=== PATIENT | female | born 1940 | race Caucasian/White ===

== ENCOUNTER 2017-05-04 10:44 | Emergency (ER) | payer MEDICARE ==
[~2017-05-04] VITALS: Ht 149.9 cm; Wt 50.0 kg
[2017-05-04 12:09] LABS: BASOPHILS % 0.5 % (0.0-2.0); EOSINOPHILS % 2.2 % (0.0-5.0); HEMATOCRIT. 29.5 % (36.0-48.0); HEMOGLOBIN. 9.8 g/dL (12.0-16.0); LYMPHOCYTES % 22.4 % (20.0-50.0); MEAN CORPUSCULAR HEMOGLOBIN 27.8 pg (28.0-32.0); MEAN CORPUSCULAR VOLUME 83.8 fL (81.0-99.0); MONOCYTES % 5.8 % (2.0-8.0); NEUTROPHILS % 69.1 % (40.0-76.0); PLATELET 163 x1000/uL (130-400); RED BLOOD CELL COUNT 3.52 mill/uL (4.2-5.4); RED CELL DISTRIBUTION WIDTH 14.3 % (11.6-14.6)
[2017-05-04 12:17] LABS: PROTHROMBIN TIME 10.6 sec (9.4-11.6)
[2017-05-04 12:24] LABS: CLARITY URINE CLEAR (CLEAR); COLOR URINE YELLOW (YELLOW); GLUCOSE URINE NEGATIVE (NEGATIVE); KETONES URINE NEGATIVE (NEGATIVE); LEUKOCYTE ESTERASE URINE 1+ (NEGATIVE); NITRITE URINE NEGATIVE (NEGATIVE); OCCULT BLOOD URINE TRACE (NEGATIVE); PH URINE 5.5 (4.5-8.0); PROTEIN URINE 3+ (NEGATIVE); SPECIFIC GRAVITY URINE 1.012 (1.005-1.030); UROBILINOGEN URINE 0.2 E.U./dL (0.2-1.0)
[2017-05-04] MEDS ORDERED: SODIUM CHLORIDE 0.9% 1,000 ML IV ONE (12:30)
[2017-05-04 13:40] VITALS: BP 160/73
== END 2017-05-04 15:05 | disposition home or self-care (01) ==
LOC: ER 12:06
DX: E87.5 Hyperkalemia (principal); I12.9 Hypertensive chronic kidney disease with stage 1 through stage 4 chronic kidney disease, or unspecified chronic kidney disease; N18.9 Chronic kidney disease, unspecified; E11.22 Type 2 diabetes mellitus with diabetic chronic kidney disease
CPT/HCPCS: 36415; 80048; 81001; 85025; 85610; 96360; 96361; 99285; J7030

== ENCOUNTER 2020-08-21 17:18 | Inpatient (IN) | payer MEDICARE, MEDICAID ==
[~2020-08-21] VITALS: Ht 152.4 cm; Wt 45.9 kg
[2020-08-21 20:06] LABS: BASOPHILS % 0.6 % (0.0-2.0); EOSINOPHILS % 0.2 % (0.0-5.0); HEMATOCRIT. 33.2 % (36.0-48.0); HEMOGLOBIN. 10.9 g/dL (12.0-16.0); LYMPHOCYTES % 14.2 % (20.0-50.0); MEAN CORPUSCULAR HEMOGLOBIN 26.7 pg (28.0-32.0); MEAN CORPUSCULAR VOLUME 81.5 fL (81.0-99.0); MEAN PLATELET VOLUME 8.1 fl (7.4-10.4); MONOCYTES % 9.5 % (2.0-8.0); NEUTROPHILS % 75.5 % (40.0-76.0); PLATELET 155 x1000/uL (130-400); RED BLOOD CELL COUNT 4.08 mill/uL (4.2-5.4); RED CELL DISTRIBUTION WIDTH 15.5 % (11.6-14.6)
[2020-08-21 20:18] LABS: CHLORIDE 108 mEq/L (98-107)
[2020-08-21] MEDS ORDERED: FUROSEMIDE 40MG/4ML VIAL IVP ONE (21:00)
[2020-08-22] VITALS (9 sets, daily range): BP systolic 150–183; BP diastolic 50–79
[2020-08-22] MEDS ORDERED: ACETAMINOPHEN 325MG TABLET PO PRN (09:45)
[2020-08-22] MEDS ORDERED: ONDANSETRON HCL 4MG/2ML INJ IV PRN (09:45)
[2020-08-22] MEDS ORDERED: CLONIDINE 0.1MG TABLET PO PRN (10:45)
[2020-08-22] MEDS: FUROSEMIDE 40MG/4ML VIAL IVP SCH (10:52)
[2020-08-22] MEDS: ENOXAPARIN 30MG/0.3ML SYR SUBCUT SCH (10:53)
[2020-08-22 13:19] LABS: CHLORIDE 109 mEq/L (98-107)
[2020-08-22 13:31] LABS: LDL CHOLESTEROL 55 mg/dL (5-100)
[2020-08-22 13:32] LABS: HDL CHOLESTEROL 92 mg/dL (40-59)
[2020-08-22] MEDS: DILTIAZEM HCL 30MG TABLET PO SCH ×2 (15:18→19:12)
[2020-08-22] MEDS: METHIMAZOLE 10MG TABLET PO SCH (19:13)
[2020-08-22 21:23] LABS: T4 FREE 1.76 ng/dL (0.76-1.46)
[2020-08-23] VITALS (11 sets, daily range): BP systolic 122–160; BP diastolic 44–61
[2020-08-23] MEDS: DILTIAZEM HCL 30MG TABLET PO SCH ×3 (06:48→11:12)
[2020-08-23 06:55] LABS: BASOPHILS % 0.5 % (0.0-2.0); EOSINOPHILS % 1.2 % (0.0-5.0); HEMATOCRIT. 28.3 % (36.0-48.0); HEMOGLOBIN. 9.5 g/dL (12.0-16.0); LYMPHOCYTES % 25.4 % (20.0-50.0); MEAN CORPUSCULAR HEMOGLOBIN 27.3 pg (28.0-32.0); MEAN CORPUSCULAR VOLUME 81.5 fL (81.0-99.0); MEAN PLATELET VOLUME 8.1 fl (7.4-10.4); NEUTROPHILS % 60.9 % (40.0-76.0); PLATELET 121 x1000/uL (130-400); RED BLOOD CELL COUNT 3.47 mill/uL (4.2-5.4); RED CELL DISTRIBUTION WIDTH 15.6 % (11.6-14.6)
[2020-08-23] MEDS: METHIMAZOLE 10MG TABLET PO SCH ×3 (09:42→17:41)
[2020-08-23] MEDS: FUROSEMIDE 40MG/4ML VIAL IVP SCH (09:43)
[2020-08-23] MEDS: ENOXAPARIN 30MG/0.3ML SYR SUBCUT SCH (09:43)
[2020-08-23] MEDS ORDERED: DILTIAZEM HCL 60MG TABLET PO SCH ×2 (12:00→18:00)
[2020-08-23] MEDS ORDERED: DILTIAZEM HCL 30MG TABLET PO NR (13:45)
[2020-08-23] MEDS ORDERED: FURO-152 MT (15:48)
[2020-08-23] MEDS ORDERED: DILT240C91 MT (15:48)
[2020-08-23] MEDS ORDERED: TAP PO (15:48)
== END 2020-08-23 18:55 | disposition home or self-care (01) | DRG 291 ==
LOC: ER 17:18 → 5EST 08-22 00:28 → ENRESERV 08-22 07:44
PROVIDERS: ADMIT Internal Medicine; ATTEND Internal Medicine
DX: I13.0 Hypertensive heart and chronic kidney disease with heart failure and stage 1 through stage 4 chronic kidney disease, or unspecified chronic kidney disease (principal); E43 Unspecified severe protein-calorie malnutrition; I50.33 Acute on chronic diastolic (congestive) heart failure; E87.1 Hypo-osmolality and hyponatremia; Z68.1 Body mass index [BMI] 19.9 or less, adult; N17.9 Acute kidney failure, unspecified; E11.22 Type 2 diabetes mellitus with diabetic chronic kidney disease; D64.9 Anemia, unspecified; E87.8 Other disorders of electrolyte and fluid balance, not elsewhere classified; E05.90 Thyrotoxicosis, unspecified without thyrotoxic crisis or storm; E03.9 Hypothyroidism, unspecified; N18.30 Chronic kidney disease, stage 3 unspecified; Z79.899 Other long term (current) drug therapy; I27.20 Pulmonary hypertension, unspecified
CPT/HCPCS: 36415; 71045; 80048; 80053; 80061; 82962; 83880; 84439; 84443; 84481; 84484; 85025; 93005; 93306; 99285; J1650; J1940

== ENCOUNTER 2021-02-18 14:25 | Inpatient (IN) | payer MEDICAID, MEDICARE, OTHER ==
[~2021-02-18] VITALS: Ht 147.3 cm; Wt 47.6 kg
[~2021-02-18 14:25] MED LIST: DILT240C91 MT; FURO-152 MT; TAP PO
[2021-02-18 16:37] LABS: BASOPHILS % 0.9 % (0.0-2.0); EOSINOPHILS % 2.8 % (0.0-5.0); HEMATOCRIT. 23.4 % (36.0-48.0); LYMPHOCYTES % 17.5 % (20.0-50.0); MEAN CORPUSCULAR HEMOGLOBIN 30.8 pg (28.0-32.0); MEAN CORPUSCULAR VOLUME 90.3 fL (81.0-99.0); MEAN PLATELET VOLUME 6.6 fl (7.4-10.4); MONOCYTES % 6.9 % (2.0-8.0); NEUTROPHILS % 71.9 % (40.0-76.0); PLATELET 270 x1000/uL (130-400); RED BLOOD CELL COUNT 2.59 mill/uL (4.2-5.4); RED CELL DISTRIBUTION WIDTH 14.9 % (11.6-14.6)
[2021-02-18 16:40] LABS: CHLORIDE 104 mEq/L (98-107)
[2021-02-18 19:38] LABS: HEPATITIS B SURFACE ANTIGEN NEGATIVE
[2021-02-18 20:08] LABS: HEPATITIS A AB IGM NEGATIVE (NEGATIVE)
[2021-02-18 21:30] VITALS: BP 168/46
[2021-02-18] MEDS ORDERED: DEXTROSE 50% WATER 50ML SYRINGE IV PRN (23:00)
[2021-02-18] MEDS ORDERED: ONDANSETRON HCL 4MG TABLET PO PRN (23:15)
[2021-02-19] VITALS (11 sets, daily range): BP systolic 134–168; BP diastolic 46–66
[2021-02-19] MEDS: CLONIDINE 0.1MG TABLET PO PRN ×2 (01:39→18:24)
[2021-02-19 07:25] LABS: BASOPHILS % 0.9 % (0.0-2.0); EOSINOPHILS % 2.9 % (0.0-5.0); HEMOGLOBIN. 7.2 g/dL (12.0-16.0); LYMPHOCYTES % 13.6 % (20.0-50.0); MEAN CORPUSCULAR HEMOGLOBIN 30.9 pg (28.0-32.0); MEAN PLATELET VOLUME 6.7 fl (7.4-10.4); NEUTROPHILS % 75.6 % (40.0-76.0); PLATELET 248 x1000/uL (130-400); RED BLOOD CELL COUNT 2.33 mill/uL (4.2-5.4); RED CELL DISTRIBUTION WIDTH 14.6 % (11.6-14.6)
[2021-02-19 07:28] LABS: PHOSPHORUS 5.5 mg/dL (2.5-4.9)
[2021-02-19] MEDS: INSULIN LISPRO 100 UNITS/ML SUBCUT SCH ×4 (07:50→22:23)
[2021-02-19] MEDS: BLOOD SUGAR DIAGNOSTIC STRIP TEST SCH ×4 (07:59→21:57)
[2021-02-19] MEDS: SEVELAMER CARBONATE 800 MG TABLET PO SCH ×3 (08:43→17:04)
[2021-02-19] MEDS: FERROUS SULFATE 300MG/5ML UDC PO SCH ×3 (08:43→17:04)
[2021-02-19] MEDS: FOLIC ACID/VITAMIN B COMP W-C TABLET PO SCH (08:43)
[2021-02-19] MEDS: CALCITRIOL 0.25MCG CAPSULE PO SCH (08:44)
[2021-02-19] MEDS ORDERED: AMLODIPINE 10MG TABLET PO SCH ×2 (09:00)
[2021-02-19] MEDS ORDERED: MANNITOL 12.5G (25%) VIAL 50ML IV SCH (14:00)
[2021-02-19] MEDS: ATORVASTATIN CALCIUM 20MG TABLET PO SCH (21:58)
[2021-02-19 22:07] LABS: HEMATOCRIT 28.9 % (36.0-48.0); HEMOGLOBIN 10.1 g/dL (12.0-16.0)
[2021-02-20] VITALS: BP 145/57
[2021-02-20 04:00] VITALS: BP 84/45
[2021-02-20] MEDS: BLOOD SUGAR DIAGNOSTIC STRIP TEST SCH ×4 (06:26→21:00)
[2021-02-20 07:04] LABS: EOSINOPHILS % 2.4 % (0.0-5.0); HEMATOCRIT. 29.7 % (36.0-48.0); HEMOGLOBIN. 10.3 g/dL (12.0-16.0); LYMPHOCYTES % 16.1 % (20.0-50.0); MEAN CORPUSCULAR HEMOGLOBIN 30.2 pg (28.0-32.0); MEAN CORPUSCULAR VOLUME 86.6 fL (81.0-99.0); MEAN PLATELET VOLUME 6.3 fl (7.4-10.4); NEUTROPHILS % 72.5 % (40.0-76.0); PLATELET 254 x1000/uL (130-400); RED BLOOD CELL COUNT 3.43 mill/uL (4.2-5.4); RED CELL DISTRIBUTION WIDTH 15.1 % (11.6-14.6)
[2021-02-20] MEDS: INSULIN LISPRO 100 UNITS/ML SUBCUT SCH ×4 (07:50→21:00)
[2021-02-20 08:00] VITALS: BP 155/53
[2021-02-20] MEDS: FOLIC ACID/VITAMIN B COMP W-C TABLET PO SCH (09:04)
[2021-02-20] MEDS: CALCITRIOL 0.25MCG CAPSULE PO SCH (09:04)
[2021-02-20] MEDS: SEVELAMER CARBONATE 800 MG TABLET PO SCH ×3 (09:04→17:59)
[2021-02-20] MEDS: DILTIAZEM HCL 120MG CAPSULE CD 24HR PO SCH (09:05)
[2021-02-20] MEDS: FERROUS SULFATE 300MG/5ML UDC PO SCH ×3 (09:05→17:59)
[2021-02-20 20:00] VITALS: BP 159/52
[2021-02-20] MEDS: ATORVASTATIN CALCIUM 20MG TABLET PO SCH (22:34)
[2021-02-21] VITALS: BP 150/45
[2021-02-21 04:00] VITALS: BP 147/46
[2021-02-21 06:28] LABS: BASOPHILS % 0.9 % (0.0-2.0); EOSINOPHILS % 1.9 % (0.0-5.0); HEMATOCRIT. 29.4 % (36.0-48.0); HEMOGLOBIN. 10.1 g/dL (12.0-16.0); LYMPHOCYTES % 15.7 % (20.0-50.0); MEAN CORPUSCULAR HEMOGLOBIN 30.1 pg (28.0-32.0); MEAN CORPUSCULAR VOLUME 87.5 fL (81.0-99.0); MEAN PLATELET VOLUME 6.8 fl (7.4-10.4); MONOCYTES % 8.3 % (2.0-8.0); NEUTROPHILS % 73.2 % (40.0-76.0); PLATELET 241 x1000/uL (130-400); RED BLOOD CELL COUNT 3.36 mill/uL (4.2-5.4); RED CELL DISTRIBUTION WIDTH 15.1 % (11.6-14.6)
[2021-02-21] MEDS: BLOOD SUGAR DIAGNOSTIC STRIP TEST SCH ×4 (06:43→20:44)
[2021-02-21] MEDS: INSULIN LISPRO 100 UNITS/ML SUBCUT SCH ×4 (07:50→20:44)
[2021-02-21 08:00] VITALS: BP 157/45
[2021-02-21] MEDS: FOLIC ACID/VITAMIN B COMP W-C TABLET PO SCH (08:48)
[2021-02-21] MEDS: SEVELAMER CARBONATE 800 MG TABLET PO SCH ×3 (08:48→17:33)
[2021-02-21] MEDS: FERROUS SULFATE 300MG/5ML UDC PO SCH ×3 (08:48→17:33)
[2021-02-21] MEDS: CALCITRIOL 0.25MCG CAPSULE PO SCH (08:49)
[2021-02-21] MEDS: DILTIAZEM HCL 120MG CAPSULE CD 24HR PO SCH (08:50)
[2021-02-21 12:04] VITALS: BP 159/55
[2021-02-21 16:00] VITALS: BP 158/51
[2021-02-21 20:00] VITALS: BP 146/60
[2021-02-21] MEDS: ATORVASTATIN CALCIUM 20MG TABLET PO SCH (20:48)
[2021-02-22] VITALS: BP 148/55
[2021-02-22 04:00] VITALS: BP 165/96
[2021-02-22] MEDS: BLOOD SUGAR DIAGNOSTIC STRIP TEST SCH ×4 (06:47→21:03)
[2021-02-22] MEDS: INSULIN LISPRO 100 UNITS/ML SUBCUT SCH ×4 (07:50→21:00)
[2021-02-22 08:00] VITALS: BP 170/55
[2021-02-22] MEDS: SEVELAMER CARBONATE 800 MG TABLET PO SCH ×3 (08:44→17:58)
[2021-02-22] MEDS: DILTIAZEM HCL 120MG CAPSULE CD 24HR PO SCH ×2 (08:44→21:02)
[2021-02-22] MEDS: CALCITRIOL 0.25MCG CAPSULE PO SCH (08:44)
[2021-02-22] MEDS: FOLIC ACID/VITAMIN B COMP W-C TABLET PO SCH (08:44)
[2021-02-22] MEDS: FERROUS SULFATE 300MG/5ML UDC PO SCH ×3 (08:45→17:58)
[2021-02-22] MEDS: CLONIDINE 0.1MG TABLET PO PRN (08:49)
[2021-02-22 12:00] VITALS: BP 130/44
[2021-02-22 16:00] VITALS: BP 128/48
[2021-02-22 20:00] VITALS: BP 122/41
[2021-02-22] MEDS: HYDRALAZINE HCL 50MG TABLET PO SCH (21:02)
[2021-02-22] MEDS: ATORVASTATIN CALCIUM 20MG TABLET PO SCH (21:03)
[2021-02-23] VITALS: BP 116/33
[2021-02-23 04:00] VITALS: BP 124/38
[2021-02-23 06:13] LABS: BASOPHILS % 0.6 % (0.0-2.0); EOSINOPHILS % 1.8 % (0.0-5.0); HEMOGLOBIN. 9.2 g/dL (12.0-16.0); LYMPHOCYTES % 14.3 % (20.0-50.0); MEAN CORPUSCULAR HEMOGLOBIN 29.6 pg (28.0-32.0); MEAN CORPUSCULAR VOLUME 89.7 fL (81.0-99.0); MEAN PLATELET VOLUME 7.1 fl (7.4-10.4); MONOCYTES % 8.8 % (2.0-8.0); NEUTROPHILS % 74.5 % (40.0-76.0); PLATELET 181 x1000/uL (130-400); RED BLOOD CELL COUNT 3.12 mill/uL (4.2-5.4); RED CELL DISTRIBUTION WIDTH 14.5 % (11.6-14.6)
[2021-02-23] MEDS: BLOOD SUGAR DIAGNOSTIC STRIP TEST SCH ×2 (06:46→12:20)
[2021-02-23] MEDS: INSULIN LISPRO 100 UNITS/ML SUBCUT SCH ×2 (07:50→13:48)
[2021-02-23 08:00] VITALS: BP 137/42
[2021-02-23] MEDS: CALCITRIOL 0.25MCG CAPSULE PO SCH (08:46)
[2021-02-23] MEDS: FOLIC ACID/VITAMIN B COMP W-C TABLET PO SCH (08:46)
[2021-02-23] MEDS: FERROUS SULFATE 300MG/5ML UDC PO SCH ×3 (08:46→16:37)
[2021-02-23] MEDS: SEVELAMER CARBONATE 800 MG TABLET PO SCH ×3 (08:46→16:37)
[2021-02-23] MEDS: HYDRALAZINE HCL 50MG TABLET PO SCH (08:47)
[2021-02-23] MEDS: DILTIAZEM HCL 120MG CAPSULE CD 24HR PO SCH (08:47)
[2021-02-23] MEDS ORDERED: HYDR-4135 PO (11:28)
[2021-02-23] MEDS ORDERED: DILT120C88 PO (11:28)
[2021-02-23 12:00] VITALS: BP 118/38
[2021-02-23 14:09] VITALS: BP 133/50
[2021-02-23 16:00] VITALS: BP 128/40
== END 2021-02-23 17:36 | disposition home or self-care (01) | DRG 640 ==
LOC: ER 14:25 → 6EST 17:32 → ENRESERV 19:44 → 6EST 21:25
PROVIDERS: ADMIT Internal Medicine; ATTEND Internal Medicine
PROC: 30233N1 Transfusion of Nonautologous Red Blood Cells into Peripheral Vein, Percutaneous Approach (ICD-10-PCS; principal; 2021-02-19)
PROC: 5A1D70Z Performance of Urinary Filtration, Intermittent, Less than 6 Hours Per Day (ICD-10-PCS; 2021-02-19)
PROC: 5A1D70Z Performance of Urinary Filtration, Intermittent, Less than 6 Hours Per Day (ICD-10-PCS; 2021-02-21)
DX: E87.5 Hyperkalemia (principal); N18.6 End stage renal disease; I13.2 Hypertensive heart and chronic kidney disease with heart failure and with stage 5 chronic kidney disease, or end stage renal disease; I31.3 Pericardial effusion (noninflammatory); E44.0 Moderate protein-calorie malnutrition; E87.1 Hypo-osmolality and hyponatremia; E87.2 Acidosis; D63.1 Anemia in chronic kidney disease; E11.22 Type 2 diabetes mellitus with diabetic chronic kidney disease; F03.90 Unspecified dementia, unspecified severity, without behavioral disturbance, psychotic disturbance, mood disturbance, and anxiety; Z20.822 Contact with and (suspected) exposure to COVID-19; I27.20 Pulmonary hypertension, unspecified; I50.9 Heart failure, unspecified; E11.21 Type 2 diabetes mellitus with diabetic nephropathy; I36.1 Nonrheumatic tricuspid (valve) insufficiency; I35.1 Nonrheumatic aortic (valve) insufficiency; E04.9 Nontoxic goiter, unspecified; Z99.2 Dependence on renal dialysis; Z79.84 Long term (current) use of oral hypoglycemic drugs; Z79.899 Other long term (current) drug therapy; Z68.21 Body mass index [BMI] 21.0-21.9, adult
CPT/HCPCS: 36415; 71045; 80048; 80053; 80061; 82270; 82728; 82962; 83036; 83540; 83550; 83735; 83970; 84100; 85014; 85018; 85025; 86705; 86709; 86803; 86850; 86900; 86920; 87340; 87426; 97116; 97162; 97530; 99285; J1815; J2150; P9016; U0003; U0005

== ENCOUNTER 2021-05-05 09:34 | Inpatient (IN) | payer MEDICARE, MEDICAID ==
[~2021-05-05] VITALS: Ht 152.4 cm; Wt 41.8 kg
[~2021-05-05 09:34] MED LIST changes: +DILT120C88 PO; -DILT240C91 MT; +HYDR-4135 PO
[2021-05-05 11:00] LABS: BASOPHILS % 0.8 % (0.0-2.0); HEMATOCRIT. 35.9 % (36.0-48.0); HEMOGLOBIN. 12.1 g/dL (12.0-16.0); LYMPHOCYTES % 19.2 % (20.0-50.0); MEAN CORPUSCULAR HEMOGLOBIN 30.1 pg (28.0-32.0); MEAN CORPUSCULAR VOLUME 89.4 fL (81.0-99.0); MEAN PLATELET VOLUME 6.3 fl (7.4-10.4); MONOCYTES % 6.5 % (2.0-8.0); NEUTROPHILS % 72.5 % (40.0-76.0); PLATELET 238 x1000/uL (130-400); RED BLOOD CELL COUNT 4.02 mill/uL (4.2-5.4)
[2021-05-05 11:04] LABS: CHLORIDE 99 mEq/L (98-107)
[2021-05-05 11:10] LABS: PROTHROMBIN TIME 10.7 sec (9.6-11.0)
[2021-05-05] MEDS ORDERED: AZITHROMYCIN 500 MG in DEXT 5% WATER 250 ML IV ONE (13:15)
[2021-05-05] MEDS ORDERED: CEFTRIAXONE 1 G PREMIX 50 ML IV ONE (13:15)
[2021-05-05] MEDS ORDERED: PIPERACILLIN/TAZ 3.375G PREMIX 50 ML IV NR (20:30)
[2021-05-05] MEDS ORDERED: VANCOMYCIN 1 G PREMIX 200 ML IV NR (20:30)
[2021-05-06] VITALS: BP_SYST 158; BP_SYST 169; BP_DIAS 55; BP_DIAS 56
[2021-05-06] MEDS ORDERED: DEXTROSE 50% WATER 50ML SYRINGE IV PRN (01:15)
[2021-05-06] MEDS: CLONIDINE 0.2MG TABLET PO PRN ×2 (02:26→08:42)
[2021-05-06 04:00] VITALS: BP 117/54
[2021-05-06] MEDS: BLOOD SUGAR DIAGNOSTIC STRIP TEST SCH ×4 (05:43→21:43)
[2021-05-06] MEDS: INSULIN LISPRO 100 UNITS/ML SUBCUT SCH ×4 (05:44→21:54)
[2021-05-06 07:10] LABS: BASOPHILS % 0.8 % (0.0-2.0); EOSINOPHILS % 1.3 % (0.0-5.0); HEMOGLOBIN. 11.3 g/dL (12.0-16.0); LYMPHOCYTES % 10.9 % (20.0-50.0); MEAN CORPUSCULAR HEMOGLOBIN 29.9 pg (28.0-32.0); MEAN CORPUSCULAR VOLUME 89.7 fL (81.0-99.0); MEAN PLATELET VOLUME 6.6 fl (7.4-10.4); MONOCYTES % 5.8 % (2.0-8.0); NEUTROPHILS % 81.2 % (40.0-76.0); PLATELET 250 x1000/uL (130-400); RED CELL DISTRIBUTION WIDTH 17.2 % (11.6-14.6)
[2021-05-06 08:00] VITALS: BP 173/59
[2021-05-06] MEDS: METHIMAZOLE 5MG TABLET PO SCH ×2 (08:40→13:41)
[2021-05-06] MEDS: FUROSEMIDE 20MG TABLET PO SCH (08:41)
[2021-05-06] MEDS: HYDRALAZINE HCL 50MG TABLET PO SCH ×2 (08:41→21:53)
[2021-05-06] MEDS ORDERED: DILTIAZEM HCL 120MG CAPSULE CD 24HR PO SCH ×2 (09:00→21:00)
[2021-05-06] MEDS ORDERED: ENOXAPARIN 30MG/0.3ML SYR SUBCUT SCH (09:00)
[2021-05-06] MEDS ORDERED: PIPERACILLIN/TAZOBACTAM 3.375 G in DEXTROSE 5% WATER 50 ML IV SCH (09:00)
[2021-05-06] MEDS ORDERED: ENOXAPARIN 40MG/0.4ML SYR SUBCUT SCH (09:00)
[2021-05-06 12:00] VITALS: BP 126/49
[2021-05-06] MEDS ORDERED: PNEUMOCOCCAL 23-VAL P-SAC VAC 0.5 ML IM ONE (12:00)
[2021-05-06] MEDS ORDERED: METHIMAZOLE 5MG TABLET PO SCH (13:00)
[2021-05-06 14:59] LABS: T4 FREE 0.71 ng/dL (0.76-1.46)
[2021-05-06 16:00] VITALS: BP 142/49
[2021-05-06 16:57] LABS: HEPATITIS B SURFACE ANTIGEN NEGATIVE
[2021-05-06] MEDS: CEFEPIME 2,000 MG in DEXT 5% WATER 100 ML IV SCH (17:45)
[2021-05-06] MEDS: DILTIAZEM HCL 60MG TABLET PO SCH (17:46)
[2021-05-06 20:00] VITALS: BP 152/73
[2021-05-07] VITALS: BP 146/59
[2021-05-07] MEDS: DILTIAZEM HCL 60MG TABLET PO SCH ×5 (00:48→23:31)
[2021-05-07 04:00] VITALS: BP 107/44
[2021-05-07] MEDS: BLOOD SUGAR DIAGNOSTIC STRIP TEST SCH ×4 (05:51→20:54)
[2021-05-07] MEDS: INSULIN LISPRO 100 UNITS/ML SUBCUT SCH ×4 (06:22→20:54)
[2021-05-07 08:00] VITALS: BP 140/52
[2021-05-07 08:26] LABS: BASOPHILS % 0.6 % (0.0-2.0); EOSINOPHILS % 0.9 % (0.0-5.0); HEMATOCRIT. 32.1 % (36.0-48.0); HEMOGLOBIN. 10.7 g/dL (12.0-16.0); LYMPHOCYTES % 9.1 % (20.0-50.0); MEAN CORPUSCULAR VOLUME 90.4 fL (81.0-99.0); MONOCYTES % 5.5 % (2.0-8.0); NEUTROPHILS % 83.9 % (40.0-76.0); PLATELET 218 x1000/uL (130-400); RED BLOOD CELL COUNT 3.55 mill/uL (4.2-5.4); RED CELL DISTRIBUTION WIDTH 16.6 % (11.6-14.6)
[2021-05-07] MEDS: FUROSEMIDE 20MG TABLET PO SCH (08:34)
[2021-05-07] MEDS: HYDRALAZINE HCL 50MG TABLET PO SCH ×2 (08:34→20:54)
[2021-05-07 08:46] LABS: PHOSPHORUS 3.8 mg/dL (2.5-4.9)
[2021-05-07] MEDS ORDERED: METHIMAZOLE 5MG TABLET PO SCH (09:00)
[2021-05-07] MEDS: FOLIC ACID/VITAMIN B COMP W-C TABLET PO SCH (09:31)
[2021-05-07 12:00] VITALS: BP 138/49
[2021-05-07 16:00] VITALS: BP 143/52
[2021-05-07] MEDS: CEFEPIME 2,000 MG in DEXT 5% WATER 100 ML IV SCH (17:52)
[2021-05-07 20:00] VITALS: BP 147/52
[2021-05-08] VITALS: BP 149/50
[2021-05-08 04:00] VITALS: BP 153/47
[2021-05-08] MEDS: INSULIN LISPRO 100 UNITS/ML SUBCUT SCH ×4 (06:20→20:38)
[2021-05-08] MEDS: BLOOD SUGAR DIAGNOSTIC STRIP TEST SCH ×4 (06:20→20:36)
[2021-05-08] MEDS: DILTIAZEM HCL 60MG TABLET PO SCH ×4 (06:20→23:55)
[2021-05-08 08:00] VITALS: BP 159/53
[2021-05-08] MEDS ORDERED: SODIUM BICARBONATE 4% (2.4MEQ) 5ML VIAL IV ONE (08:36)
[2021-05-08] MEDS: FOLIC ACID/VITAMIN B COMP W-C TABLET PO SCH (08:57)
[2021-05-08] MEDS: FUROSEMIDE 20MG TABLET PO SCH (08:57)
[2021-05-08] MEDS: HYDRALAZINE HCL 50MG TABLET PO SCH ×2 (09:10→20:37)
[2021-05-08 12:00] VITALS: BP 138/44
[2021-05-08] MEDS: CEFEPIME 2,000 MG in DEXT 5% WATER 100 ML IV SCH (18:50)
[2021-05-08 20:00] VITALS: BP 100/58
[2021-05-09] VITALS: BP 141/47
[2021-05-09 04:00] VITALS: BP 100/49
[2021-05-09] MEDS: INSULIN LISPRO 100 UNITS/ML SUBCUT SCH ×4 (05:57→21:00)
[2021-05-09] MEDS: BLOOD SUGAR DIAGNOSTIC STRIP TEST SCH ×4 (05:57→21:00)
[2021-05-09] MEDS: DILTIAZEM HCL 60MG TABLET PO SCH ×4 (05:57→23:37)
[2021-05-09 07:15] LABS: BASOPHILS % 0.6 % (0.0-2.0); EOSINOPHILS % 1.1 % (0.0-5.0); HEMATOCRIT. 35.6 % (36.0-48.0); HEMOGLOBIN. 11.7 g/dL (12.0-16.0); LYMPHOCYTES % 14.8 % (20.0-50.0); MEAN CORPUSCULAR HEMOGLOBIN 29.9 pg (28.0-32.0); MEAN PLATELET VOLUME 6.9 fl (7.4-10.4); MONOCYTES % 7.3 % (2.0-8.0); NEUTROPHILS % 76.2 % (40.0-76.0); PLATELET 204 x1000/uL (130-400); RED BLOOD CELL COUNT 3.91 mill/uL (4.2-5.4); RED CELL DISTRIBUTION WIDTH 17.4 % (11.6-14.6)
[2021-05-09 08:00] VITALS: BP 147/55
[2021-05-09] MEDS: FOLIC ACID/VITAMIN B COMP W-C TABLET PO SCH (08:42)
[2021-05-09] MEDS: FUROSEMIDE 20MG TABLET PO SCH (08:42)
[2021-05-09] MEDS: HYDRALAZINE HCL 50MG TABLET PO SCH ×2 (08:42→21:00)
[2021-05-09 12:00] VITALS: BP 148/50
[2021-05-09 16:00] VITALS: BP 150/54
[2021-05-09] MEDS: CEFEPIME 2,000 MG in DEXT 5% WATER 100 ML IV SCH (16:12)
[2021-05-09 20:00] VITALS: BP 137/60
[2021-05-10] VITALS: BP 154/50
[2021-05-10 04:00] VITALS: BP 155/50
[2021-05-10 06:19] LABS: BASOPHILS % 0.9 % (0.0-2.0); EOSINOPHILS % 3.4 % (0.0-5.0); HEMATOCRIT. 34.1 % (36.0-48.0); HEMOGLOBIN. 11.3 g/dL (12.0-16.0); LYMPHOCYTES % 12.1 % (20.0-50.0); MEAN CORPUSCULAR HEMOGLOBIN 29.8 pg (28.0-32.0); MEAN CORPUSCULAR VOLUME 90.2 fL (81.0-99.0); MONOCYTES % 7.6 % (2.0-8.0); PLATELET 191 x1000/uL (130-400); RED BLOOD CELL COUNT 3.78 mill/uL (4.2-5.4); RED CELL DISTRIBUTION WIDTH 17.1 % (11.6-14.6)
[2021-05-10 06:36] LABS: T4 FREE 0.88 ng/dL (0.76-1.46)
[2021-05-10] MEDS: DILTIAZEM HCL 60MG TABLET PO SCH ×3 (06:37→17:21)
[2021-05-10] MEDS: BLOOD SUGAR DIAGNOSTIC STRIP TEST SCH ×4 (06:38→21:07)
[2021-05-10] MEDS: INSULIN LISPRO 100 UNITS/ML SUBCUT SCH ×4 (06:38→21:12)
[2021-05-10 08:00] VITALS: BP 151/50
[2021-05-10] MEDS: FOLIC ACID/VITAMIN B COMP W-C TABLET PO SCH (09:01)
[2021-05-10] MEDS: FUROSEMIDE 20MG TABLET PO SCH (09:01)
[2021-05-10] MEDS: HYDRALAZINE HCL 50MG TABLET PO SCH ×2 (09:01→21:06)
[2021-05-10] MEDS ORDERED: POTASSIUM CHLORIDE 20MEQ/PACKET PO SCH (09:45)
[2021-05-10 11:52] VITALS: BP 144/50
[2021-05-10 16:00] VITALS: BP 145/51
[2021-05-10] MEDS: CEFEPIME 2,000 MG in DEXT 5% WATER 100 ML IV SCH (17:21)
[2021-05-10 20:00] VITALS: BP 176/57
[2021-05-11] VITALS: BP 141/49
[2021-05-11 04:00] VITALS: BP 139/49
[2021-05-11 06:16] LABS: BASOPHILS % 0.6 % (0.0-2.0); EOSINOPHILS % 4.8 % (0.0-5.0); HEMATOCRIT. 35.3 % (36.0-48.0); HEMOGLOBIN. 11.7 g/dL (12.0-16.0); LYMPHOCYTES % 16.7 % (20.0-50.0); MEAN CORPUSCULAR HEMOGLOBIN 29.9 pg (28.0-32.0); MEAN CORPUSCULAR VOLUME 90.4 fL (81.0-99.0); MEAN PLATELET VOLUME 7.1 fl (7.4-10.4); NEUTROPHILS % 69.9 % (40.0-76.0); PLATELET 199 x1000/uL (130-400); RED BLOOD CELL COUNT 3.91 mill/uL (4.2-5.4); RED CELL DISTRIBUTION WIDTH 16.9 % (11.6-14.6)
[2021-05-11] MEDS: DILTIAZEM HCL 60MG TABLET PO SCH ×3 (06:35→18:00)
[2021-05-11] MEDS: BLOOD SUGAR DIAGNOSTIC STRIP TEST SCH ×3 (06:35→21:00)
[2021-05-11] MEDS: INSULIN LISPRO 100 UNITS/ML SUBCUT SCH ×3 (06:35→21:00)
[2021-05-11 08:00] VITALS: BP 138/52
[2021-05-11] MEDS: FUROSEMIDE 20MG TABLET PO SCH (09:56)
[2021-05-11] MEDS: HYDRALAZINE HCL 50MG TABLET PO SCH ×2 (09:56→21:35)
[2021-05-11] MEDS: FOLIC ACID/VITAMIN B COMP W-C TABLET PO SCH (09:56)
[2021-05-11 12:00] VITALS: BP 136/64
[2021-05-11] MEDS ORDERED: DILT60TA35 PO (13:12)
[2021-05-11 14:32] VITALS: BP 136/64
[2021-05-11 20:00] VITALS: BP 135/56
== END 2021-05-11 22:12 | disposition home health service (06) | DRG 291 ==
LOC: ER 09:34 → 7EST 13:13 → EDBEDREQ 13:37 → ENRESERV 17:27
PROVIDERS: ADMIT Internal Medicine; ATTEND Internal Medicine
PROC: 5A1D70Z Performance of Urinary Filtration, Intermittent, Less than 6 Hours Per Day (ICD-10-PCS; 2021-05-06)
PROC: 0W993ZZ Drainage of Right Pleural Cavity, Percutaneous Approach (ICD-10-PCS; principal; 2021-05-08)
PROC: 5A1D70Z Performance of Urinary Filtration, Intermittent, Less than 6 Hours Per Day (ICD-10-PCS; 2021-05-10)
PROC: 5A1D70Z Performance of Urinary Filtration, Intermittent, Less than 6 Hours Per Day (ICD-10-PCS; 2021-05-11)
DX: I13.2 Hypertensive heart and chronic kidney disease with heart failure and with stage 5 chronic kidney disease, or end stage renal disease (principal); J96.00 Acute respiratory failure, unspecified whether with hypoxia or hypercapnia; N18.6 End stage renal disease; I50.33 Acute on chronic diastolic (congestive) heart failure; J91.8 Pleural effusion in other conditions classified elsewhere; N25.81 Secondary hyperparathyroidism of renal origin; Z68.1 Body mass index [BMI] 19.9 or less, adult; D63.1 Anemia in chronic kidney disease; E11.22 Type 2 diabetes mellitus with diabetic chronic kidney disease; E05.90 Thyrotoxicosis, unspecified without thyrotoxic crisis or storm; I27.21 Secondary pulmonary arterial hypertension; F03.90 Unspecified dementia, unspecified severity, without behavioral disturbance, psychotic disturbance, mood disturbance, and anxiety; M19.90 Unspecified osteoarthritis, unspecified site; E78.5 Hyperlipidemia, unspecified; Z20.822 Contact with and (suspected) exposure to COVID-19; R62.7 Adult failure to thrive; I08.3 Combined rheumatic disorders of mitral, aortic and tricuspid valves; E03.9 Hypothyroidism, unspecified; Z79.84 Long term (current) use of oral hypoglycemic drugs; Z80.0 Family history of malignant neoplasm of digestive organs; Z82.3 Family history of stroke; Z86.718 Personal history of other venous thrombosis and embolism; Z99.2 Dependence on renal dialysis; Z79.899 Other long term (current) drug therapy; Z98.891 History of uterine scar from previous surgery; Z82.49 Family history of ischemic heart disease and other diseases of the circulatory system
CPT/HCPCS: 32555; 36415; 71045; 80048; 80053; 80061; 82533; 82962; 83036; 83520; 83605; 83615; 83735; 83880; 84100; 84134; 84145; 84439; 84443; 84481; 84484; 85025; 86705; 86709; 86803; 86850; 86900; 87340; 87426; 88108; 88312; 93005; 93971; 97162; 99285; C1893; J0456; J0692; J0696; J1650; J1815; J2543; J3370; J3490; J7040; J7060

== ENCOUNTER 2021-06-07 10:10 | Inpatient (IN) | payer MEDICARE, MEDICAID ==
[~2021-06-07] VITALS: Ht 152.4 cm; Wt 41.5 kg
[~2021-06-07 10:10] MED LIST changes: -DILT120C88 PO; +DILT60TA35 PO
[2021-06-07 11:10] LABS: EOSINOPHILS % 0.7 % (0.0-5.0); HEMATOCRIT. 37.1 % (36.0-48.0); HEMOGLOBIN. 12.2 g/dL (12.0-16.0); LYMPHOCYTES % 13.4 % (20.0-50.0); MEAN CORPUSCULAR HEMOGLOBIN 29.8 pg (28.0-32.0); MEAN CORPUSCULAR VOLUME 90.3 fL (81.0-99.0); MEAN PLATELET VOLUME 6.4 fl (7.4-10.4); MONOCYTES % 6.8 % (2.0-8.0); NEUTROPHILS % 78.1 % (40.0-76.0); PLATELET 269 x1000/uL (130-400); RED BLOOD CELL COUNT 4.11 mill/uL (4.2-5.4); RED CELL DISTRIBUTION WIDTH 16.6 % (11.6-14.6)
[2021-06-07 11:17] LABS: CHLORIDE 92 mEq/L (98-107)
[2021-06-07 15:40] LABS: PROTHROMBIN TIME 10.8 sec (9.6-11.0)
[2021-06-07] MEDS ORDERED: ACETAMINOPHEN 325MG TABLET PO PRN ×2 (18:00)
[2021-06-07] MEDS ORDERED: IPRATROPIUM/ALBUTEROL 0.5-3(2.5)MG/3ML NEB HHN PRN (18:00)
[2021-06-07] MEDS ORDERED: NALOXONE HCL 0.4MG/ML VIAL IV PRN (18:00)
[2021-06-07] MEDS ORDERED: DOCUSATE SODIUM 100MG CAPSULE PO PRN (18:00)
[2021-06-07] MEDS ORDERED: HYDROCODONE/ACETAMINOPHEN 5/325MG TABLET PO PRN (18:00)
[2021-06-07] MEDS ORDERED: ONDANSETRON HCL 4MG/2ML INJ IV PRN (18:00)
[2021-06-07] MEDS ORDERED: LORAZEPAM 0.5MG TABLET PO PRN (18:00)
[2021-06-07 21:00] VITALS: BP 159/69
[2021-06-07] MEDS ORDERED: DEXTROSE 50% WATER 50ML SYRINGE IV PRN (23:45)
[2021-06-08] VITALS: BP 160/64
[2021-06-08] MEDS: CLONIDINE 0.1MG TABLET PO PRN ×2 (00:05→18:35)
[2021-06-08] MEDS ORDERED: INFLUENZA VACCINE 05/PF 0.5 ML SYRINGE IM ONE ×2 (02:00→05:00)
[2021-06-08 04:00] VITALS: BP_SYST 152; BP_SYST 175; BP_DIAS 65; BP_DIAS 71
[2021-06-08 06:02] LABS: PHOSPHORUS 4.5 mg/dL (2.5-4.9)
[2021-06-08 06:07] LABS: BASOPHILS % 0.4 % (0.0-2.0); EOSINOPHILS % 0.4 % (0.0-5.0); HEMATOCRIT. 32.8 % (36.0-48.0); LYMPHOCYTES % 12.6 % (20.0-50.0); MEAN CORPUSCULAR HEMOGLOBIN 30.3 pg (28.0-32.0); MEAN CORPUSCULAR VOLUME 90.8 fL (81.0-99.0); MEAN PLATELET VOLUME 6.7 fl (7.4-10.4); MONOCYTES % 5.6 % (2.0-8.0); PLATELET 229 x1000/uL (130-400); RED BLOOD CELL COUNT 3.61 mill/uL (4.2-5.4); RED CELL DISTRIBUTION WIDTH 16.4 % (11.6-14.6)
[2021-06-08] MEDS: INSULIN LISPRO 100 UNITS/ML SUBCUT SCH ×4 (06:10→21:00)
[2021-06-08] MEDS: BLOOD SUGAR DIAGNOSTIC STRIP TEST SCH ×4 (06:10→21:02)
[2021-06-08 08:00] VITALS: BP 135/52
[2021-06-08] MEDS ORDERED: SODIUM BICARBONATE 4% (2.4MEQ) 5ML VIAL IV ONE (08:26)
[2021-06-08] MEDS: FOLIC ACID/VITAMIN B COMP W-C TABLET PO SCH (10:01)
[2021-06-08] MEDS: SEVELAMER CARBONATE 800 MG TABLET PO SCH ×3 (10:01→18:00)
[2021-06-08 12:00] VITALS: BP 155/54
[2021-06-08 14:45] LABS: T4 FREE 0.53 ng/dL (0.76-1.46)
[2021-06-08 16:00] VITALS: BP 162/52
[2021-06-08] MEDS: DEXTROSE 50% WATER 50ML SYRINGE IV PRN ×2 (17:10→21:03)
[2021-06-08 20:00] VITALS: BP 115/70
[2021-06-09] VITALS: BP 137/59
[2021-06-09 00:27] LABS: HEPATITIS B SURFACE ANTIGEN REACTIVE PEND CONFIR
[2021-06-09 04:00] VITALS: BP 168/61
[2021-06-09] MEDS: BLOOD SUGAR DIAGNOSTIC STRIP TEST SCH ×4 (06:43→21:01)
[2021-06-09] MEDS: INSULIN LISPRO 100 UNITS/ML SUBCUT SCH ×4 (06:44→21:00)
[2021-06-09 07:04] LABS: BASOPHILS % 0.6 % (0.0-2.0); EOSINOPHILS % 1.5 % (0.0-5.0); HEMATOCRIT. 32.9 % (36.0-48.0); LYMPHOCYTES % 11.5 % (20.0-50.0); MEAN CORPUSCULAR HEMOGLOBIN 30.4 pg (28.0-32.0); MEAN CORPUSCULAR VOLUME 91.3 fL (81.0-99.0); MEAN PLATELET VOLUME 6.5 fl (7.4-10.4); MONOCYTES % 7.6 % (2.0-8.0); NEUTROPHILS % 78.8 % (40.0-76.0); PLATELET 215 x1000/uL (130-400); RED BLOOD CELL COUNT 3.61 mill/uL (4.2-5.4); RED CELL DISTRIBUTION WIDTH 16.5 % (11.6-14.6)
[2021-06-09 08:00] VITALS: BP 140/59
[2021-06-09] MEDS: SEVELAMER CARBONATE 800 MG TABLET PO SCH ×3 (08:03→18:16)
[2021-06-09] MEDS: FOLIC ACID/VITAMIN B COMP W-C TABLET PO SCH (08:03)
[2021-06-09 12:00] VITALS: BP 137/56
[2021-06-09 16:00] VITALS: BP 116/63
[2021-06-09 20:00] VITALS: BP 104/66
[2021-06-10] VITALS: BP 141/58
[2021-06-10 04:00] VITALS: BP 131/55
[2021-06-10] MEDS: INSULIN LISPRO 100 UNITS/ML SUBCUT SCH ×2 (05:46→12:40)
[2021-06-10] MEDS: BLOOD SUGAR DIAGNOSTIC STRIP TEST SCH ×2 (05:46→12:10)
[2021-06-10 07:05] LABS: BASOPHILS % 0.6 % (0.0-2.0); EOSINOPHILS % 1.3 % (0.0-5.0); HEMATOCRIT. 31.5 % (36.0-48.0); HEMOGLOBIN. 10.4 g/dL (12.0-16.0); LYMPHOCYTES % 14.8 % (20.0-50.0); MEAN CORPUSCULAR HEMOGLOBIN 29.8 pg (28.0-32.0); MEAN PLATELET VOLUME 6.3 fl (7.4-10.4); MONOCYTES % 8.7 % (2.0-8.0); NEUTROPHILS % 74.6 % (40.0-76.0); PLATELET 186 x1000/uL (130-400); RED CELL DISTRIBUTION WIDTH 16.4 % (11.6-14.6)
[2021-06-10 08:00] VITALS: BP 131/56
[2021-06-10] MEDS: SEVELAMER CARBONATE 800 MG TABLET PO SCH ×2 (09:33→13:32)
[2021-06-10] MEDS: FOLIC ACID/VITAMIN B COMP W-C TABLET PO SCH (09:36)
[2021-06-10 12:00] VITALS: BP 146/56
[2021-06-10] MEDS ORDERED: SEVE800T8 PO (13:39)
[2021-06-10 15:18] VITALS: BP 146/56
[2021-06-11 13:06] LABS: HBSAG CONFIRMATION Positive (.); HBSAG SCREEN Confirm. indicated (Negative)
== END 2021-06-10 19:00 | disposition home or self-care (01) | DRG 291 ==
LOC: ER 10:10 → 8WST 12:48 → EDBEDREQTM 12:51 → EDBEDREQ 12:51 → ENRESERV 15:09 → CANRESERV 15:09 → ENRESERV 19:38
PROVIDERS: ADMIT Internal Medicine; ATTEND Internal Medicine
PROC: 0W993ZZ Drainage of Right Pleural Cavity, Percutaneous Approach (ICD-10-PCS; principal; 2021-06-08)
PROC: 5A1D70Z Performance of Urinary Filtration, Intermittent, Less than 6 Hours Per Day (ICD-10-PCS; 2021-06-08)
PROC: 5A1D70Z Performance of Urinary Filtration, Intermittent, Less than 6 Hours Per Day (ICD-10-PCS; 2021-06-09)
PROC: 5A1D70Z Performance of Urinary Filtration, Intermittent, Less than 6 Hours Per Day (ICD-10-PCS; 2021-06-10)
DX: I13.2 Hypertensive heart and chronic kidney disease with heart failure and with stage 5 chronic kidney disease, or end stage renal disease (principal); J96.00 Acute respiratory failure, unspecified whether with hypoxia or hypercapnia; N18.6 End stage renal disease; I50.33 Acute on chronic diastolic (congestive) heart failure; E46 Unspecified protein-calorie malnutrition; E87.1 Hypo-osmolality and hyponatremia; J91.8 Pleural effusion in other conditions classified elsewhere; J98.11 Atelectasis; Z68.1 Body mass index [BMI] 19.9 or less, adult; E03.9 Hypothyroidism, unspecified; E11.22 Type 2 diabetes mellitus with diabetic chronic kidney disease; E78.5 Hyperlipidemia, unspecified; G30.9 Alzheimer's disease, unspecified; F02.80 Dementia in other diseases classified elsewhere, unspecified severity, without behavioral disturbance, psychotic disturbance, mood disturbance, and anxiety; I27.21 Secondary pulmonary arterial hypertension; R62.7 Adult failure to thrive; M19.90 Unspecified osteoarthritis, unspecified site; Z20.822 Contact with and (suspected) exposure to COVID-19; I08.3 Combined rheumatic disorders of mitral, aortic and tricuspid valves; D63.8 Anemia in other chronic diseases classified elsewhere; Z86.718 Personal history of other venous thrombosis and embolism; Z99.2 Dependence on renal dialysis; Z79.84 Long term (current) use of oral hypoglycemic drugs; Z83.3 Family history of diabetes mellitus; Z79.899 Other long term (current) drug therapy; Z87.01 Personal history of pneumonia (recurrent); Z98.891 History of uterine scar from previous surgery
CPT/HCPCS: 32555; 36415; 71045; 80048; 80053; 82962; 83036; 83735; 83880; 84100; 84439; 84443; 84481; 84484; 85025; 86705; 86709; 86803; 87340; 87426; 90686; 93005; 93306; 99285; J1815; J3490

== ENCOUNTER 2021-06-15 10:32 | Inpatient (IN) | payer MEDICARE, MEDICAID ==
[~2021-06-15] VITALS: Ht 144.8 cm; Wt 39.0 kg
[~2021-06-15 10:32] MED LIST changes: +SEVE800T8 PO
[2021-06-15 11:48] LABS: BASOPHILS % 0.6 % (0.0-2.0); EOSINOPHILS % 0.2 % (0.0-5.0); HEMATOCRIT. 34.9 % (36.0-48.0); HEMOGLOBIN. 11.4 g/dL (12.0-16.0); LYMPHOCYTES % 8.6 % (20.0-50.0); MEAN CORPUSCULAR HEMOGLOBIN 29.7 pg (28.0-32.0); MEAN CORPUSCULAR VOLUME 90.9 fL (81.0-99.0); MEAN PLATELET VOLUME 6.5 fl (7.4-10.4); MONOCYTES % 6.4 % (2.0-8.0); NEUTROPHILS % 84.2 % (40.0-76.0); PLATELET 228 x1000/uL (130-400); RED BLOOD CELL COUNT 3.84 mill/uL (4.2-5.4); RED CELL DISTRIBUTION WIDTH 16.7 % (11.6-14.6)
[2021-06-15 11:50] LABS: CHLORIDE 95 mEq/L (98-107)
[2021-06-15] MEDS ORDERED: IPRATROPIUM/ALBUTEROL 0.5-3(2.5)MG/3ML NEB HHN PRN (20:00)
[2021-06-15] MEDS ORDERED: CLONIDINE 0.1MG TABLET PO PRN (20:00)
[2021-06-15] MEDS ORDERED: ACETAMINOPHEN 325MG TABLET PO PRN (20:00)
[2021-06-15] MEDS ORDERED: ONDANSETRON HCL 4MG/2ML INJ IV PRN (20:00)
[2021-06-15] MEDS ORDERED: DIPHENHYDRAMINE 50MG/ML VIAL IV PRN (20:00)
[2021-06-15 22:30] VITALS: BP 107/53
[2021-06-15] MEDS ORDERED: DEXTROSE 50% WATER 50ML SYRINGE IV PRN (23:00)
[2021-06-15 23:20] VITALS: BP 107/53
[2021-06-16] VITALS: BP 107/53
[2021-06-16] MEDS ORDERED: METH10TA7 PO (01:15)
[2021-06-16 01:30] LABS: HEPATITIS B SURFACE ANTIGEN NEGATIVE
[2021-06-16 04:00] VITALS: BP 165/58
[2021-06-16] MEDS: BLOOD SUGAR DIAGNOSTIC STRIP TEST SCH ×4 (06:37→21:30)
[2021-06-16 07:02] LABS: BASOPHILS % 0.3 % (0.0-2.0); EOSINOPHILS % 0.5 % (0.0-5.0); HEMATOCRIT. 31.3 % (36.0-48.0); HEMOGLOBIN. 10.1 g/dL (12.0-16.0); LYMPHOCYTES % 8.4 % (20.0-50.0); MEAN CORPUSCULAR HEMOGLOBIN 29.7 pg (28.0-32.0); MEAN CORPUSCULAR VOLUME 92.4 fL (81.0-99.0); MEAN PLATELET VOLUME 6.4 fl (7.4-10.4); MONOCYTES % 7.6 % (2.0-8.0); NEUTROPHILS % 83.2 % (40.0-76.0); PLATELET 225 x1000/uL (130-400); RED BLOOD CELL COUNT 3.38 mill/uL (4.2-5.4); RED CELL DISTRIBUTION WIDTH 16.8 % (11.6-14.6)
[2021-06-16 07:17] LABS: CHLORIDE 97 mEq/L (98-107)
[2021-06-16 07:29] LABS: HDL CHOLESTEROL 96 mg/dL (40-59); PHOSPHORUS 3.3 mg/dL (2.5-4.9)
[2021-06-16 07:30] LABS: LDL CHOLESTEROL 62 mg/dL (5-100)
[2021-06-16] MEDS: INSULIN LISPRO 100 UNITS/ML SUBCUT SCH ×4 (07:30→21:00)
[2021-06-16 08:00] VITALS: BP 156/56
[2021-06-16 11:44] LABS: PROTHROMBIN TIME 10.4 sec (9.6-11.0)
[2021-06-16 12:00] VITALS: BP 130/64
[2021-06-16 16:00] VITALS: BP 121/49
[2021-06-16 20:00] VITALS: BP 142/62
[2021-06-16] MEDS ORDERED: DOCUSATE SODIUM 100MG CAPSULE PO NR (22:45)
[2021-06-17] VITALS (53 sets, daily range): BP systolic 85–168; BP diastolic 41–84
[2021-06-17] MEDS: BISACODYL 10MG SUPP PR PRN (02:40)
[2021-06-17] MEDS: BLOOD SUGAR DIAGNOSTIC STRIP TEST SCH ×4 (06:40→21:00)
[2021-06-17] MEDS ORDERED: SKIN ADHESIVE 0.7 GM EA TOP ONE (07:03)
[2021-06-17] MEDS ORDERED: POLYMYXIN B SULFATE 500000 UNITS/VIAL ONE (07:04)
[2021-06-17] MEDS ORDERED: BUPIVACAINE HCL/PF 0.25% (2.5MG/ML) 10ML ONE (07:04)
[2021-06-17] MEDS ORDERED: TALC 3 GM VIAL IX SCH (07:15)
[2021-06-17 07:18] LABS: CHLORIDE 101 mEq/L (98-107)
[2021-06-17 07:26] LABS: PARTIAL THROMBOPLASTIN TIME 31.2 sec (23.4-31.0); PROTHROMBIN TIME 10.8 sec (9.6-11.0)
[2021-06-17] MEDS: INSULIN LISPRO 100 UNITS/ML SUBCUT SCH ×4 (07:29→21:00)
[2021-06-17 07:53] LABS: HEMATOCRIT. 33.7 % (36.0-48.0); HEMOGLOBIN. 10.7 g/dL (12.0-16.0); MEAN CORPUSCULAR HEMOGLOBIN 29.7 pg (28.0-32.0); MEAN PLATELET VOLUME 6.5 fl (7.4-10.4); PLATELET 227 x1000/uL (130-400); RED BLOOD CELL COUNT 3.59 mill/uL (4.2-5.4); RED CELL DISTRIBUTION WIDTH 16.6 % (11.6-14.6)
[2021-06-17] MEDS ORDERED: LIDOCAINE HCL 1% 20ML VIAL (Pyxis) INJ ONE (09:37)
[2021-06-17] MEDS ORDERED: CEFAZOLIN 1000MG PREMIX 50 ML IV SCH (10:00)
[2021-06-17] MEDS ORDERED: ALBUMIN HUMAN 12.5G/250ML (5%) IV NR (10:00)
[2021-06-17] MEDS ORDERED: ACETAMINOPHEN 325MG TABLET PO PRN (10:00)
[2021-06-17] MEDS ORDERED: OXYCODONE HCL/ACETAMINOPHEN 5/325MG TABLET PO PRN (10:00)
[2021-06-17] MEDS: DOCUSATE SODIUM 100MG CAPSULE PO SCH ×2 (10:00→17:00)
[2021-06-17] MEDS ORDERED: MORPHINE SULFATE 2 MG/ML CPJ (NOT FOR IM USE) IV PRN (10:00)
[2021-06-17] MEDS ORDERED: ONDANSETRON HCL 4MG/2ML INJ IV PRN (10:00)
[2021-06-17] MEDS: DEXT 5%/0.45% NACL 1000ML 1,000 ML IV SCH (10:05)
[2021-06-17 10:18] LABS: BG CARBOXYHEMOGLOBIN 0.3 % (0.5-1.5); BG DEOXYHEMOGLOBIN 0.5 % (0.0-5.0); BG FRACTION INSPIRED OXYGEN 100; BG HCO3 ACT 21.5 mmol/L (22.0-26.0); BG METHEMOGLOBIN 0.3 % (0.0-1.5); BG OXYGEN SATURATION 99.5 % (92.0-98.5); BG OXYHEMOGLOBIN 98.9 % (94.0-97.0); BG PCO2 32.5 mmHg (35.0-45.0); BG PH 7.439 (7.350-7.450); BG PO2 466.9 mmHg (75.0-100.0); BG TOTAL HEMOGLOBIN 10.9 g/dL (12.0-18.0); BG VENT MODE VENT - AC
[2021-06-17] MEDS: CEFAZOLIN 1000MG PREMIX 50 ML IV SCH ×2 (12:31→20:42)
[2021-06-17] MEDS: IPRATROPIUM/ALBUTEROL 0.5-3(2.5)MG/3ML NEB HHN SCH ×2 (16:19→23:55)
[2021-06-17 17:22] LABS: PLATELET ESTIMATE NORMAL
[2021-06-17] MEDS ORDERED: FENTANYL CITRATE/PF 2,500 MCG in SODIUM CHLORIDE 0.9% 200 ML IV PRN (18:30)
[2021-06-17] MEDS ORDERED: NALOXONE HCL 0.4MG/ML VIAL IV PRN (18:30)
[2021-06-18] VITALS (42 sets, daily range): BP systolic 91–151; BP diastolic 26–107
[2021-06-18] MEDS: DEXT 5%/0.45% NACL 1000ML 1,000 ML IV SCH ×2 (01:46→18:29)
[2021-06-18] MEDS: IPRATROPIUM/ALBUTEROL 0.5-3(2.5)MG/3ML NEB HHN SCH ×5 (02:29→20:31)
[2021-06-18] MEDS: CEFAZOLIN 1000MG PREMIX 50 ML IV SCH (05:06)
[2021-06-18 07:01] LABS: HEMATOCRIT. 31.7 % (36.0-48.0); HEMOGLOBIN. 10.2 g/dL (12.0-16.0); MEAN CORPUSCULAR HEMOGLOBIN 29.4 pg (28.0-32.0); MEAN CORPUSCULAR VOLUME 91.1 fL (81.0-99.0); MEAN PLATELET VOLUME 6.9 fl (7.4-10.4); PLATELET 172 x1000/uL (130-400); RED BLOOD CELL COUNT 3.48 mill/uL (4.2-5.4); RED CELL DISTRIBUTION WIDTH 16.8 % (11.6-14.6)
[2021-06-18] MEDS: BLOOD SUGAR DIAGNOSTIC STRIP TEST SCH ×4 (07:42→21:00)
[2021-06-18] MEDS: INSULIN LISPRO 100 UNITS/ML SUBCUT SCH ×4 (07:42→21:17)
[2021-06-18] MEDS: DOCUSATE SODIUM SUGAR FREE 100MG/10ML UDC NG SCH ×2 (08:07→17:52)
[2021-06-18 09:08] LABS: BG BASE EXCESS 4.5 mmol/L (-2.0-2.0); BG CARBOXYHEMOGLOBIN 0.3 % (0.5-1.5); BG DEOXYHEMOGLOBIN 0.9 % (0.0-5.0); BG FRACTION INSPIRED OXYGEN 40; BG HCO3 ACT 29.9 mmol/L (22.0-26.0); BG METHEMOGLOBIN 0.3 % (0.0-1.5); BG OXYGEN SATURATION 99.1 % (92.0-98.5); BG OXYHEMOGLOBIN 98.5 % (94.0-97.0); BG PCO2 48.2 mmHg (35.0-45.0); BG PO2 155.8 mmHg (75.0-100.0); BG SAMPLE SITE RIGHT RADIAL; BG VENT MODE VENT - AC
[2021-06-18 11:09] LABS: BG BASE EXCESS 0.7 mmol/L (-2.0-2.0); BG CARBOXYHEMOGLOBIN 0.3 % (0.5-1.5); BG DEOXYHEMOGLOBIN 2.6 % (0.0-5.0); BG FRACTION INSPIRED OXYGEN 40; BG HCO3 ACT 26.4 mmol/L (22.0-26.0); BG METHEMOGLOBIN 0.8 % (0.0-1.5); BG OXYGEN SATURATION 97.4 % (92.0-98.5); BG OXYHEMOGLOBIN 96.3 % (94.0-97.0); BG PCO2 46.9 mmHg (35.0-45.0); BG PH 7.368 (7.350-7.450); BG PO2 106.2 mmHg (75.0-100.0); BG SAMPLE SITE RIGHT RADIAL; BG TOTAL HEMOGLOBIN 11.3 g/dL (12.0-18.0); BG VENT MODE VENT - CPAP
[2021-06-18 11:20] LABS: PLATELET ESTIMATE NORMAL
[2021-06-18] MEDS: DOCUSATE SODIUM 100MG CAPSULE PO SCH (18:22)
[2021-06-19] VITALS (54 sets, daily range): BP systolic 72–154; BP diastolic 26–74
[2021-06-19] MEDS: IPRATROPIUM/ALBUTEROL 0.5-3(2.5)MG/3ML NEB HHN SCH ×6 (00:34→21:21)
[2021-06-19 05:44] LABS: HEMATOCRIT. 30.6 % (36.0-48.0); HEMOGLOBIN. 9.8 g/dL (12.0-16.0); MEAN CORPUSCULAR HEMOGLOBIN 29.5 pg (28.0-32.0); MEAN CORPUSCULAR VOLUME 92.2 fL (81.0-99.0); PLATELET 135 x1000/uL (130-400); RED BLOOD CELL COUNT 3.32 mill/uL (4.2-5.4); RED CELL DISTRIBUTION WIDTH 16.8 % (11.6-14.6)
[2021-06-19] MEDS: BLOOD SUGAR DIAGNOSTIC STRIP TEST SCH ×4 (07:50→21:38)
[2021-06-19] MEDS: INSULIN LISPRO 100 UNITS/ML SUBCUT SCH ×4 (08:20→21:00)
[2021-06-19] MEDS: ASCORBIC ACID 500 MG TABLET PO SCH (08:50)
[2021-06-19] MEDS: DOCUSATE SODIUM 100MG CAPSULE PO SCH ×2 (08:50→17:00)
[2021-06-19] MEDS: ZINC SULFATE 220 MG ( 50 ) CAPSULE PO SCH (08:50)
[2021-06-19] MEDS: DILTIAZEM HCL 30MG TABLET PO SCH ×3 (10:12→21:39)
[2021-06-19 10:34] LABS: PLATELET ESTIMATE NORMAL
[2021-06-19] MEDS: DEXT 5%/0.45% NACL 1000ML 1,000 ML IV SCH (12:31)
[2021-06-19 14:33] LABS: BG BASE EXCESS 1.1 mmol/L (-2.0-2.0); BG CARBOXYHEMOGLOBIN 0.3 % (0.5-1.5); BG DEOXYHEMOGLOBIN 5.5 % (0.0-5.0); BG FRACTION INSPIRED OXYGEN 100; BG HCO3 ACT 28.4 mmol/L (22.0-26.0); BG METHEMOGLOBIN 0.3 % (0.0-1.5); BG OXYGEN SATURATION 94.5 % (92.0-98.5); BG OXYHEMOGLOBIN 93.9 % (94.0-97.0); BG PCO2 59.9 mmHg (35.0-45.0); BG PH 7.294 (7.350-7.450); BG PO2 80.4 mmHg (75.0-100.0); BG SAMPLE SITE RIGHT RADIAL; BG TOTAL HEMOGLOBIN 10.1 g/dL (12.0-18.0); BG VENT MODE MASK - BIPAP
[2021-06-19] MEDS: ALBUMIN HUMAN 12.5G/250ML (5%) IV PRN (15:05)
[2021-06-19] MEDS: LORAZEPAM 2MG/ML CPJ IV PRN (16:02)
[2021-06-19 16:59] LABS: BG BASE EXCESS 3.6 mmol/L (-2.0-2.0); BG CARBOXYHEMOGLOBIN 0.3 % (0.5-1.5); BG DEOXYHEMOGLOBIN 1.2 % (0.0-5.0); BG FRACTION INSPIRED OXYGEN 100; BG HCO3 ACT 29.7 mmol/L (22.0-26.0); BG METHEMOGLOBIN 0.2 % (0.0-1.5); BG OXYGEN SATURATION 98.8 % (92.0-98.5); BG OXYHEMOGLOBIN 98.3 % (94.0-97.0); BG PCO2 52.6 mmHg (35.0-45.0); BG PH 7.369 (7.350-7.450); BG PO2 166.7 mmHg (75.0-100.0); BG SAMPLE SITE RIGHT RADIAL; BG TOTAL HEMOGLOBIN 10.1 g/dL (12.0-18.0); BG VENT MODE MASK - BIPAP
[2021-06-20] VITALS (29 sets, daily range): BP systolic 116–165; BP diastolic 46–73
[2021-06-20] MEDS: IPRATROPIUM/ALBUTEROL 0.5-3(2.5)MG/3ML NEB HHN SCH ×6 (01:52→20:52)
[2021-06-20] MEDS: DEXT 5%/0.45% NACL 1000ML 1,000 ML IV SCH ×2 (04:26→21:12)
[2021-06-20] MEDS: DILTIAZEM HCL 30MG TABLET PO SCH ×2 (05:33→13:41)
[2021-06-20 05:52] LABS: HEMATOCRIT. 27.1 % (36.0-48.0); HEMOGLOBIN. 8.7 g/dL (12.0-16.0); MEAN CORPUSCULAR HEMOGLOBIN 30.4 pg (28.0-32.0); MEAN CORPUSCULAR VOLUME 94.4 fL (81.0-99.0); MEAN PLATELET VOLUME 6.9 fl (7.4-10.4); PLATELET 101 x1000/uL (130-400); RED BLOOD CELL COUNT 2.87 mill/uL (4.2-5.4)
[2021-06-20 06:49] LABS: PHOSPHORUS 2.4 mg/dL (2.5-4.9)
[2021-06-20] MEDS: BLOOD SUGAR DIAGNOSTIC STRIP TEST SCH ×4 (06:55→21:24)
[2021-06-20] MEDS: INSULIN LISPRO 100 UNITS/ML SUBCUT SCH ×4 (06:55→21:00)
[2021-06-20] MEDS ORDERED: BISACODYL 10MG SUPP PR SCH (08:00)
[2021-06-20] MEDS: DOCUSATE SODIUM 100MG CAPSULE PO SCH ×2 (08:46→17:42)
[2021-06-20] MEDS: ZINC SULFATE 220 MG ( 50 ) CAPSULE PO SCH (08:46)
[2021-06-20] MEDS: ASCORBIC ACID 500 MG TABLET PO SCH (08:46)
[2021-06-20 10:48] LABS: BG CARBOXYHEMOGLOBIN 0.3 % (0.5-1.5); BG DEOXYHEMOGLOBIN 4.7 % (0.0-5.0); BG FRACTION INSPIRED OXYGEN 100; BG METHEMOGLOBIN 0.2 % (0.0-1.5); BG OXYGEN SATURATION 95.3 % (92.0-98.5); BG OXYHEMOGLOBIN 94.8 % (94.0-97.0); BG PCO2 52.2 mmHg (35.0-45.0); BG PH 7.363 (7.350-7.450); BG PO2 78.4 mmHg (75.0-100.0); BG SAMPLE SITE RIGHT RADIAL; BG TOTAL HEMOGLOBIN 9.7 g/dL (12.0-18.0); BG VENT MODE MASK - NRB
[2021-06-20] MEDS ORDERED: DILTIAZEM HCL 30MG TABLET PO SCH ×3 (14:00→22:00)
[2021-06-20 14:08] LABS: PLATELET ESTIMATE DECREASED
[2021-06-20] MEDS: DILTIAZEM HCL 60MG TABLET PO SCH (22:36)
[2021-06-21] VITALS (26 sets, daily range): BP systolic 122–173; BP diastolic 47–126
[2021-06-21] MEDS: IPRATROPIUM/ALBUTEROL 0.5-3(2.5)MG/3ML NEB HHN SCH ×6 (01:10→21:27)
[2021-06-21 05:54] LABS: HEMATOCRIT. 26.2 % (36.0-48.0); HEMOGLOBIN. 8.7 g/dL (12.0-16.0); MEAN CORPUSCULAR HEMOGLOBIN 30.3 pg (28.0-32.0); MEAN CORPUSCULAR VOLUME 91.4 fL (81.0-99.0); RED BLOOD CELL COUNT 2.87 mill/uL (4.2-5.4); RED CELL DISTRIBUTION WIDTH 16.7 % (11.6-14.6)
[2021-06-21 06:09] LABS: PHOSPHORUS 2.5 mg/dL (2.5-4.9)
[2021-06-21] MEDS: DILTIAZEM HCL 60MG TABLET PO SCH ×3 (06:16→21:30)
[2021-06-21] MEDS: INSULIN LISPRO 100 UNITS/ML SUBCUT SCH ×4 (07:29→21:29)
[2021-06-21] MEDS: BLOOD SUGAR DIAGNOSTIC STRIP TEST SCH ×4 (07:58→21:19)
[2021-06-21] MEDS: ZINC SULFATE 220 MG ( 50 ) CAPSULE PO SCH (08:40)
[2021-06-21] MEDS: ASCORBIC ACID 500 MG TABLET PO SCH (08:40)
[2021-06-21] MEDS: DOCUSATE SODIUM 100MG CAPSULE PO SCH ×2 (08:42→17:14)
[2021-06-21 09:27] LABS: BG BASE EXCESS 0.8 mmol/L (-2.0-2.0); BG CARBOXYHEMOGLOBIN 0.3 % (0.5-1.5); BG FRACTION INSPIRED OXYGEN 99.8; BG HCO3 ACT 26.8 mmol/L (22.0-26.0); BG METHEMOGLOBIN 0.2 % (0.0-1.5); BG OXYHEMOGLOBIN 96.5 % (94.0-97.0); BG PCO2 49.5 mmHg (35.0-45.0); BG PH 7.352 (7.350-7.450); BG PO2 95.5 mmHg (75.0-100.0); BG SAMPLE SITE RIGHT RADIAL; BG TOTAL HEMOGLOBIN 10.1 g/dL (12.0-18.0); BG VENT MODE MASK - NRB
[2021-06-21 13:03] LABS: PLATELET 111 x1000/uL (130-400)
[2021-06-21 13:07] LABS: PLATELET ESTIMATE SLIGHTLY DECREASED
[2021-06-21] MEDS: BISACODYL 10MG SUPP PR PRN (18:40)
[2021-06-22] VITALS (34 sets, daily range): BP systolic 106–171; BP diastolic 41–99
[2021-06-22] MEDS: LORAZEPAM 2MG/ML CPJ IV PRN (00:17)
[2021-06-22] MEDS: IPRATROPIUM/ALBUTEROL 0.5-3(2.5)MG/3ML NEB HHN SCH ×6 (00:50→21:52)
[2021-06-22 06:26] LABS: HEMATOCRIT. 27.3 % (36.0-48.0); HEMOGLOBIN. 8.9 g/dL (12.0-16.0); MEAN CORPUSCULAR HEMOGLOBIN 30.3 pg (28.0-32.0); MEAN CORPUSCULAR VOLUME 92.7 fL (81.0-99.0); RED BLOOD CELL COUNT 2.95 mill/uL (4.2-5.4); RED CELL DISTRIBUTION WIDTH 16.9 % (11.6-14.6)
[2021-06-22] MEDS: BLOOD SUGAR DIAGNOSTIC STRIP TEST SCH ×4 (07:22→21:48)
[2021-06-22] MEDS: DILTIAZEM HCL 60MG TABLET PO SCH ×3 (07:23→21:53)
[2021-06-22] MEDS: INSULIN LISPRO 100 UNITS/ML SUBCUT SCH ×4 (07:41→21:00)
[2021-06-22] MEDS ORDERED: SODIUM BICARBONATE 8.4% 1 MEQ/ML 50ML SYR IV NR (08:00)
[2021-06-22] MEDS: ASCORBIC ACID 500 MG TABLET PO SCH ×2 (09:00→09:27)
[2021-06-22] MEDS: DOCUSATE SODIUM 100MG CAPSULE PO SCH ×3 (09:00→17:00)
[2021-06-22] MEDS: ZINC SULFATE 220 MG ( 50 ) CAPSULE PO SCH ×2 (09:00→09:27)
[2021-06-22 10:13] LABS: BG BASE EXCESS 3.6 mmol/L (-2.0-2.0); BG CARBOXYHEMOGLOBIN 0.3 % (0.5-1.5); BG DEOXYHEMOGLOBIN 6.4 % (0.0-5.0); BG FRACTION INSPIRED OXYGEN 70; BG HCO3 ACT 30.5 mmol/L (22.0-26.0); BG METHEMOGLOBIN 0.2 % (0.0-1.5); BG OXYGEN SATURATION 93.6 % (92.0-98.5); BG OXYHEMOGLOBIN 93.1 % (94.0-97.0); BG PCO2 59.9 mmHg (35.0-45.0); BG PH 7.325 (7.350-7.450); BG PO2 73.2 mmHg (75.0-100.0); BG SAMPLE SITE RIGHT RADIAL; BG TOTAL HEMOGLOBIN 9.3 g/dL (12.0-18.0); BG TOTAL RESPIRATORY RATE 31 b/min; BG VENT MODE MASK - BIPAP
[2021-06-22] MEDS ORDERED: FLUMAZENIL 0.1 MG/ML 5ML VIAL IV SCH (10:15)
[2021-06-22 11:41] LABS: PLATELET 107 x1000/uL (130-400)
[2021-06-22 11:46] LABS: NUCLEATED RED BLOOD CELLS 1 /100 WBC; PLATELET ESTIMATE SLIGHTLY DECREASED
[2021-06-22 12:11] LABS: BG BASE EXCESS 3.9 mmol/L (-2.0-2.0); BG CARBOXYHEMOGLOBIN 0.1 % (0.5-1.5); BG FRACTION INSPIRED OXYGEN 70; BG HCO3 ACT 30.2 mmol/L (22.0-26.0); BG METHEMOGLOBIN 0.3 % (0.0-1.5); BG OXYHEMOGLOBIN 96.6 % (94.0-97.0); BG PCO2 55.9 mmHg (35.0-45.0); BG PH 7.351 (7.350-7.450); BG PO2 96.7 mmHg (75.0-100.0); BG SAMPLE SITE RIGHT RADIAL; BG TOTAL HEMOGLOBIN 9.1 g/dL (12.0-18.0); BG TOTAL RESPIRATORY RATE 29 b/min; BG VENT MODE MASK - BIPAP
[2021-06-22 21:05] LABS: BG BASE EXCESS -3.3 mmol/L (-2.0-2.0); BG CARBOXYHEMOGLOBIN 0.3 % (0.5-1.5); BG DEOXYHEMOGLOBIN 8.6 % (0.0-5.0); BG FRACTION INSPIRED OXYGEN 100; BG HCO3 ACT 25.6 mmol/L (22.0-26.0); BG METHEMOGLOBIN 0.5 % (0.0-1.5); BG OXYGEN SATURATION 91.3 % (92.0-98.5); BG OXYHEMOGLOBIN 90.6 % (94.0-97.0); BG PCO2 66.9 mmHg (35.0-45.0); BG PO2 73.1 mmHg (75.0-100.0); BG SAMPLE SITE RIGHT RADIAL; BG TOTAL HEMOGLOBIN 10.9 g/dL (12.0-18.0); BG VENT MODE MASK - BIPAP
[2021-06-22 23:08] LABS: BG BASE EXCESS -1.3 mmol/L (-2.0-2.0); BG CARBOXYHEMOGLOBIN 0.3 % (0.5-1.5); BG DEOXYHEMOGLOBIN 6.2 % (0.0-5.0); BG FRACTION INSPIRED OXYGEN 100; BG HCO3 ACT 26.2 mmol/L (22.0-26.0); BG METHEMOGLOBIN 0.5 % (0.0-1.5); BG OXYGEN SATURATION 93.8 % (92.0-98.5); BG PCO2 59.7 mmHg (35.0-45.0); BG PH 7.261 (7.350-7.450); BG SAMPLE SITE RIGHT RADIAL; BG TOTAL HEMOGLOBIN 9.3 g/dL (12.0-18.0); BG VENT MODE MASK - BIPAP
[2021-06-23] VITALS (97 sets, daily range): BP systolic 54–169; BP diastolic 23–77
[2021-06-23] MEDS: IPRATROPIUM/ALBUTEROL 0.5-3(2.5)MG/3ML NEB HHN SCH ×6 (00:55→20:00)
[2021-06-23 02:24] LABS: BG BASE EXCESS 0.9 mmol/L (-2.0-2.0); BG CARBOXYHEMOGLOBIN 0.1 % (0.5-1.5); BG DEOXYHEMOGLOBIN 20.2 % (0.0-5.0); BG FRACTION INSPIRED OXYGEN 100; BG HCO3 ACT 30.6 mmol/L (22.0-26.0); BG METHEMOGLOBIN 0.2 % (0.0-1.5); BG OXYGEN SATURATION 79.7 % (92.0-98.5); BG OXYHEMOGLOBIN 79.5 % (94.0-97.0); BG PCO2 83.4 mmHg (35.0-45.0); BG PH 7.183 (7.350-7.450); BG PO2 51.9 mmHg (75.0-100.0); BG SAMPLE SITE LEFT RADIAL; BG TOTAL HEMOGLOBIN 9.9 g/dL (12.0-18.0); BG VENT MODE MASK - BIPAP
[2021-06-23] MEDS ORDERED: FENTANYL CITRATE/PF 2,500 MCG in SODIUM CHLORIDE 0.9% 200 ML IV PRN (03:00)
[2021-06-23] MEDS ORDERED: PROPOFOL 10MG/ML 100ML 100 ML IV PRN (03:00)
[2021-06-23 05:08] LABS: BG BASE EXCESS 2.9 mmol/L (-2.0-2.0); BG CARBOXYHEMOGLOBIN 0.1 % (0.5-1.5); BG DEOXYHEMOGLOBIN 1.2 % (0.0-5.0); BG FRACTION INSPIRED OXYGEN 100; BG HCO3 ACT 28.8 mmol/L (22.0-26.0); BG METHEMOGLOBIN 0.1 % (0.0-1.5); BG OXYGEN SATURATION 98.8 % (92.0-98.5); BG OXYHEMOGLOBIN 98.6 % (94.0-97.0); BG PCO2 51.3 mmHg (35.0-45.0); BG PH 7.367 (7.350-7.450); BG PO2 144.5 mmHg (75.0-100.0); BG SAMPLE SITE RIGHT RADIAL; BG TOTAL HEMOGLOBIN 9.3 g/dL (12.0-18.0); BG VENT MODE VENT - AC
[2021-06-23] MEDS ORDERED: MIDAZOLAM HCL 100 MG in SODIUM CHLORIDE 0.9% 80 ML IV PRN (08:00)
[2021-06-23] MEDS: INSULIN LISPRO 100 UNITS/ML SUBCUT SCH ×4 (08:04→21:00)
[2021-06-23] MEDS: BLOOD SUGAR DIAGNOSTIC STRIP TEST SCH ×4 (08:04→21:07)
[2021-06-23] MEDS: NOREPINEPHRINE 32 MG in DEXT 5% WATER 218 ML IV PRN (08:08)
[2021-06-23] MEDS: PHENYLEPHRINE 100 MG in DEXT 5% WATER 240 ML IV PRN ×2 (08:30→17:53)
[2021-06-23 08:48] LABS: HEMATOCRIT. 28.4 % (36.0-48.0); HEMOGLOBIN. 9.1 g/dL (12.0-16.0); MEAN CORPUSCULAR HEMOGLOBIN 29.9 pg (28.0-32.0); MEAN CORPUSCULAR VOLUME 93.3 fL (81.0-99.0); MEAN PLATELET VOLUME 7.6 fl (7.4-10.4); PLATELET 80 x1000/uL (130-400); RED BLOOD CELL COUNT 3.04 mill/uL (4.2-5.4); RED CELL DISTRIBUTION WIDTH 17.2 % (11.6-14.6)
[2021-06-23 08:59] LABS: PHOSPHORUS 1.5 mg/dL (2.5-4.9)
[2021-06-23] MEDS ORDERED: ATROPINE SULFATE 1MG/10ML SYR ONE (09:02)
[2021-06-23] MEDS ORDERED: VECURONIUM BROMIDE 10 MG/VIAL IV ONE (09:02)
[2021-06-23] MEDS ORDERED: SUCCINYLCHOLINE CHLORIDE 200MG/10ML IV ONE (09:02)
[2021-06-23] MEDS ORDERED: ETOMIDATE 2MG/ML 10ML VIAL IV ONE (09:02)
[2021-06-23 09:31] LABS: PLATELET ESTIMATE DECREASED
[2021-06-23] MEDS: DOCUSATE SODIUM 100MG CAPSULE PO SCH ×2 (09:47→17:29)
[2021-06-23] MEDS: ZINC SULFATE 220 MG ( 50 ) CAPSULE PO SCH (09:47)
[2021-06-23] MEDS: ASCORBIC ACID 500 MG TABLET PO SCH (09:47)
[2021-06-23] MEDS: ALBUMIN HUMAN 12.5G/250ML (5%) IV PRN (09:47)
[2021-06-23] MEDS ORDERED: ALBUMIN HUMAN 12.5GM/50ML (25%) IV NR (10:00)
[2021-06-23] MEDS ORDERED: CEFEPIME 1,000 MG in DEXTROSE 5% WATER 50 ML IV NR (11:00)
[2021-06-23] MEDS ORDERED: SODIUM CHLORIDE 0.9% 1,000 ML IV ONE (12:15)
[2021-06-23] MEDS ORDERED: SODIUM CHLORIDE 0.9% 1000ML BAG (SEPSIS BOLUS) IV ONE (12:15)
[2021-06-23] MEDS ORDERED: SODIUM CHLORIDE 0.9% 250 ML IV SCH (12:30)
[2021-06-23] MEDS ORDERED: METRONIDAZOLE 500 MG PREMIX 100 ML IV SCH (15:15)
[2021-06-23] MEDS: ACETYLCYSTEINE 100MG/ML 10% VIAL 4ML INH SCH (16:50)
[2021-06-23] MEDS: METRONIDAZOLE 500MG TABLET PO SCH (17:30)
[2021-06-23] MEDS: DILTIAZEM HCL 60MG TABLET PO SCH (22:00)
[2021-06-24] VITALS (87 sets, daily range): BP systolic 65–137; BP diastolic 44–76
[2021-06-24] MEDS: IPRATROPIUM/ALBUTEROL 0.5-3(2.5)MG/3ML NEB HHN SCH ×6 (00:04→20:02)
[2021-06-24] MEDS: ACETYLCYSTEINE 100MG/ML 10% VIAL 4ML INH SCH ×3 (00:04→17:14)
[2021-06-24] MEDS: METRONIDAZOLE 500MG TABLET PO SCH ×2 (05:19→19:04)
[2021-06-24] MEDS: DILTIAZEM HCL 60MG TABLET PO SCH ×3 (05:27→22:00)
[2021-06-24 06:52] LABS: HEMATOCRIT. 25.8 % (36.0-48.0); MEAN CORPUSCULAR HEMOGLOBIN 29.6 pg (28.0-32.0); MEAN CORPUSCULAR VOLUME 94.7 fL (81.0-99.0); MEAN PLATELET VOLUME 9.4 fl (7.4-10.4); PLATELET 57 x1000/uL (130-400); RED BLOOD CELL COUNT 2.72 mill/uL (4.2-5.4); RED CELL DISTRIBUTION WIDTH 17.7 % (11.6-14.6)
[2021-06-24] MEDS: PHENYLEPHRINE 100 MG in DEXT 5% WATER 240 ML IV PRN (07:43)
[2021-06-24] MEDS: BLOOD SUGAR DIAGNOSTIC STRIP TEST SCH ×4 (07:50→21:00)
[2021-06-24] MEDS: INSULIN LISPRO 100 UNITS/ML SUBCUT SCH ×4 (08:20→21:00)
[2021-06-24 09:29] LABS: BG BASE EXCESS -8.8 mmol/L (-2.0-2.0); BG CARBOXYHEMOGLOBIN 0.3 % (0.5-1.5); BG DEOXYHEMOGLOBIN 0.4 % (0.0-5.0); BG FRACTION INSPIRED OXYGEN 70; BG HCO3 ACT 16.6 mmol/L (22.0-26.0); BG METHEMOGLOBIN 0.3 % (0.0-1.5); BG OXYGEN SATURATION 99.6 % (92.0-98.5); BG PCO2 33.9 mmHg (35.0-45.0); BG PH 7.309 (7.350-7.450); BG PO2 267.3 mmHg (75.0-100.0); BG SAMPLE SITE RIGHT RADIAL; BG TOTAL HEMOGLOBIN 8.8 g/dL (12.0-18.0); BG VENT MODE VENT - AC
[2021-06-24] MEDS: DOCUSATE SODIUM 100MG CAPSULE PO SCH ×2 (09:42→19:04)
[2021-06-24] MEDS: ASCORBIC ACID 500 MG TABLET PO SCH (09:42)
[2021-06-24] MEDS: ZINC SULFATE 220 MG ( 50 ) CAPSULE PO SCH (09:42)
[2021-06-24] MEDS: CEFEPIME 500 MG in DEXTROSE 5% WATER 50 ML IV SCH (09:42)
[2021-06-25] VITALS (89 sets, daily range): BP systolic 82–150; BP diastolic 48–104
[2021-06-25] MEDS: ACETYLCYSTEINE 100MG/ML 10% VIAL 4ML INH SCH ×4 (00:01→20:26)
[2021-06-25] MEDS: PHENYLEPHRINE 100 MG in DEXT 5% WATER 240 ML IV PRN ×2 (01:14→16:11)
[2021-06-25 01:33] LABS: PLATELET ESTIMATE DECREASED
[2021-06-25] MEDS: IPRATROPIUM/ALBUTEROL 0.5-3(2.5)MG/3ML NEB HHN SCH ×7 (03:48→20:26)
[2021-06-25] MEDS: METRONIDAZOLE 500MG TABLET PO SCH ×2 (05:40→18:11)
[2021-06-25] MEDS: DILTIAZEM HCL 60MG TABLET PO SCH ×3 (05:40→22:00)
[2021-06-25] MEDS: BLOOD SUGAR DIAGNOSTIC STRIP TEST SCH ×4 (08:25→21:47)
[2021-06-25] MEDS: ZINC SULFATE 220 MG ( 50 ) CAPSULE PO SCH (08:34)
[2021-06-25] MEDS: CEFEPIME 500 MG in DEXTROSE 5% WATER 50 ML IV SCH (08:34)
[2021-06-25] MEDS: ASCORBIC ACID 500 MG TABLET PO SCH (08:34)
[2021-06-25] MEDS: DOCUSATE SODIUM 100MG CAPSULE PO SCH ×2 (08:34→18:12)
[2021-06-25] MEDS: INSULIN LISPRO 100 UNITS/ML SUBCUT SCH ×4 (08:35→22:10)
[2021-06-25] MEDS ORDERED: ALTEPLASE 2MG/VIAL ITC NR (18:45)
[2021-06-26] VITALS (54 sets, daily range): BP systolic 61–196; BP diastolic 38–81
[2021-06-26] MEDS: IPRATROPIUM/ALBUTEROL 0.5-3(2.5)MG/3ML NEB HHN SCH ×4 (00:37→11:49)
[2021-06-26] MEDS: METRONIDAZOLE 500MG TABLET PO SCH (04:23)
[2021-06-26] MEDS: DILTIAZEM HCL 60MG TABLET PO SCH ×2 (06:00→13:39)
[2021-06-26] MEDS: PHENYLEPHRINE 100 MG in DEXT 5% WATER 240 ML IV PRN (06:13)
[2021-06-26] MEDS: BLOOD SUGAR DIAGNOSTIC STRIP TEST SCH ×2 (07:50→13:02)
[2021-06-26] MEDS: ACETYLCYSTEINE 100MG/ML 10% VIAL 4ML INH SCH (08:43)
[2021-06-26 08:53] LABS: BG CARBOXYHEMOGLOBIN 0.4 % (0.5-1.5); BG FRACTION INSPIRED OXYGEN 35; BG METHEMOGLOBIN 0.4 % (0.0-1.5); BG OXYHEMOGLOBIN 97.2 % (94.0-97.0); BG PCO2 27.4 mmHg (35.0-45.0); BG PH 7.384 (7.350-7.450); BG PO2 104.3 mmHg (75.0-100.0); BG SAMPLE SITE RIGHT BRACHIAL; BG TOTAL HEMOGLOBIN 9.2 g/dL (12.0-18.0); BG TOTAL RESPIRATORY RATE 18 b/min; BG VENT MODE VENT - AC
[2021-06-26] MEDS: ASCORBIC ACID 500 MG TABLET PO SCH (08:55)
[2021-06-26] MEDS: ZINC SULFATE 220 MG ( 50 ) CAPSULE PO SCH (08:55)
[2021-06-26] MEDS: CEFEPIME 500 MG in DEXTROSE 5% WATER 50 ML IV SCH (08:55)
[2021-06-26] MEDS: DOCUSATE SODIUM 100MG CAPSULE PO SCH (08:55)
[2021-06-26] MEDS: INSULIN LISPRO 100 UNITS/ML SUBCUT SCH ×2 (09:13→13:02)
[2021-06-26 09:35] LABS: HEMATOCRIT. 25.9 % (36.0-48.0); HEMOGLOBIN. 8.2 g/dL (12.0-16.0); MEAN CORPUSCULAR HEMOGLOBIN 30.1 pg (28.0-32.0); MEAN PLATELET VOLUME 8.8 fl (7.4-10.4); RED BLOOD CELL COUNT 2.73 mill/uL (4.2-5.4); RED CELL DISTRIBUTION WIDTH 18.6 % (11.6-14.6)
[2021-06-26] MEDS ORDERED: CALCIUM CHLORIDE 1GM/10ML SYR IV ONE (09:39)
[2021-06-26] MEDS ORDERED: SODIUM BICARBONATE 8.4% 1 MEQ/ML 50ML SYR IV ONE (09:39)
[2021-06-26] MEDS ORDERED: EPINEPHRINE 0.1MG/ML (1:10,000) 10ML SYR ONE (09:39)
[2021-06-26 09:42] LABS: PLATELET 31 x1000/uL (130-400)
[2021-06-26] MEDS ORDERED: LIDOCAINE HCL 1% 30ML VIAL (10MG/ML) ONE (10:03)
[2021-06-26] MEDS ORDERED: HEPARIN 1000 UNITS/ML 10ML ONE (10:04)
[2021-06-26] MEDS ORDERED: VASOPRESSIN 20 UNIT in SODIUM CHLORIDE 0.9% 99 ML IV PRN (11:15)
[2021-06-26 12:46] LABS: NUCLEATED RED BLOOD CELLS 2 /100 WBC
[2021-06-26 12:47] LABS: PLATELET ESTIMATE MARKEDLY DECREASED
[2021-06-26] MEDS ORDERED: MEROPENEM 500 MG in SODIUM CHLORIDE 0.9% 50 ML IV SCH (13:00)
[2021-06-26] MEDS ORDERED: HYDROCORTISONE SOD SUCCINATE 100 MG/2 ML VIAL IV SCH (14:00)
[2021-06-26] MEDS: NOREPINEPHRINE 32 MG in DEXT 5% WATER 218 ML IV PRN (17:05)
== END 2021-06-26 17:53 | DRG 853 ==
LOC: ER 10:32 → MICUSO 15:16 → EDBEDREQ 15:18 → EDBEDREQTM 15:18 → 6WST 20:19 → CVICU 06-17 09:50
PROVIDERS: ADMIT Internal Medicine; ATTEND Internal Medicine
PROC: 5A1D70Z Performance of Urinary Filtration, Intermittent, Less than 6 Hours Per Day (ICD-10-PCS; 2021-06-16)
PROC: 0B9N4ZX Drainage of Right Pleura, Percutaneous Endoscopic Approach, Diagnostic (ICD-10-PCS; principal; 2021-06-17)
PROC: 3E0L4GC Introduction of Other Therapeutic Substance into Pleural Cavity, Percutaneous Endoscopic Approach (ICD-10-PCS; 2021-06-17)
PROC: 0BBN4ZX Excision of Right Pleura, Percutaneous Endoscopic Approach, Diagnostic (ICD-10-PCS; 2021-06-17)
PROC: 5A1D70Z Performance of Urinary Filtration, Intermittent, Less than 6 Hours Per Day (ICD-10-PCS; 2021-06-19)
PROC: 5A09457 Assistance with Respiratory Ventilation, 24-96 Consecutive Hours, Continuous Positive Airway Pressure (ICD-10-PCS; 2021-06-19)
PROC: 5A1D70Z Performance of Urinary Filtration, Intermittent, Less than 6 Hours Per Day (ICD-10-PCS; 2021-06-21)
PROC: 5A1945Z Respiratory Ventilation, 24-96 Consecutive Hours (ICD-10-PCS; 2021-06-23)
PROC: 02HV33Z Insertion of Infusion Device into Superior Vena Cava, Percutaneous Approach (ICD-10-PCS; 2021-06-23)
PROC: B548ZZA Ultrasonography of Superior Vena Cava, Guidance (ICD-10-PCS; 2021-06-23)
PROC: 5A1D70Z Performance of Urinary Filtration, Intermittent, Less than 6 Hours Per Day (ICD-10-PCS; 2021-06-23)
PROC: 0BH17EZ Insertion of Endotracheal Airway into Trachea, Via Natural or Artificial Opening (ICD-10-PCS; 2021-06-23)
PROC: 5A1D70Z Performance of Urinary Filtration, Intermittent, Less than 6 Hours Per Day (ICD-10-PCS; 2021-06-24)
PROC: 5A12012 Performance of Cardiac Output, Single, Manual (ICD-10-PCS; 2021-06-26)
PROC: 06HY33Z Insertion of Infusion Device into Lower Vein, Percutaneous Approach (ICD-10-PCS; 2021-06-26)
PROC: B54BZZA Ultrasonography of Right Lower Extremity Veins, Guidance (ICD-10-PCS; 2021-06-26)
PROC: 5A1D70Z Performance of Urinary Filtration, Intermittent, Less than 6 Hours Per Day (ICD-10-PCS; 2021-06-26)
DX: A41.9 Sepsis, unspecified organism (principal); N18.6 End stage renal disease; I50.33 Acute on chronic diastolic (congestive) heart failure; J96.01 Acute respiratory failure with hypoxia; R65.21 Severe sepsis with septic shock; J15.6 Pneumonia due to other Gram-negative bacteria; E46 Unspecified protein-calorie malnutrition; I13.2 Hypertensive heart and chronic kidney disease with heart failure and with stage 5 chronic kidney disease, or end stage renal disease; I48.92 Unspecified atrial flutter; J94.2 Hemothorax; D63.1 Anemia in chronic kidney disease; E11.22 Type 2 diabetes mellitus with diabetic chronic kidney disease; F02.80 Dementia in other diseases classified elsewhere, unspecified severity, without behavioral disturbance, psychotic disturbance, mood disturbance, and anxiety; R13.10 Dysphagia, unspecified; E78.5 Hyperlipidemia, unspecified; I36.1 Nonrheumatic tricuspid (valve) insufficiency; I27.20 Pulmonary hypertension, unspecified; Z20.822 Contact with and (suspected) exposure to COVID-19; I46.9 Cardiac arrest, cause unspecified; D69.6 Thrombocytopenia, unspecified; L89.156 Pressure-induced deep tissue damage of sacral region; E03.9 Hypothyroidism, unspecified; E87.5 Hyperkalemia; Z99.2 Dependence on renal dialysis; E05.90 Thyrotoxicosis, unspecified without thyrotoxic crisis or storm; G30.9 Alzheimer's disease, unspecified; Z79.899 Other long term (current) drug therapy; Z79.84 Long term (current) use of oral hypoglycemic drugs; Z98.891 History of uterine scar from previous surgery; Z86.718 Personal history of other venous thrombosis and embolism; Z78.1 Physical restraint status
CPT/HCPCS: 31500; 36415; 36556; 36600; 71045; 71250; 73706; 76937; 78580; 80048; 80053; 80061; 82040; 82375; 82805; 82962; 83036; 83615; 83735; 83880; 84100; 84134; 84145; 84443; 84478; 84484; 85025; 86705; 86709; 86803; 87070; 87075; 87077; 87102; 87116; 87186; 87340; 87426; 88108; 88305; 88312; 92523; 92610; 92950; 93005; 93922; 93970; 93971; 94002; 94003; 94640; 94660; 99285; C1752; C1893; J0330; J0461; J0690; J0692; J1100; J1644; J1815; J2060; J2185; J2250; J2270; J2370; J2405; J2704; J2710; J2997; J3010; J3490; J7040; J7050; J7060; J7608; P9041; P9047